=== PATIENT | female | born 1945 | race Caucasian/White ===

== ENCOUNTER 2016-09-30 12:57 | Inpatient (IN) | payer MEDICARE, OTHER ==
[~2016-09-30] VITALS: Ht 157.5 cm; Wt 83.5 kg
--- NOTE | ~2016-09-30 | OR ---
PATIENT'S NAME: TREVON JUSTIN [facility] AGE: 71 Y [address] ROOM: [address] [place], [place] [address] LOCATION: GPCU ADMIT DATE: 10/01/2016 OR/Procedure Report DISCHARGE DATE: 10/09/2016 FAMILY PHYSICIAN: Mary Lu MD ATTENDING PHYSICIAN: Serge Camejo SURGEON: Serge Camejo DO WEB OPERATIONS ADMINISTRATOR: DATE OF PROCEDURE: 10/01/2016 PREOPERATIVE DIAGNOSES: 1. Severe coronary artery disease with left main disease greater than 80%. 2. History of carotid artery disease, status post carotid stenting. 3. Left subclavian stenosis. SECONDARY DIAGNOSIS: Chronic obstructive pulmonary disease. POSTOPERATIVE DIAGNOSES: 1. Severe coronary artery disease with left main disease greater than 80%. 2. History of carotid artery disease, status post carotid stenting. 3. Left subclavian stenosis. PROCEDURES: Coronary artery bypass grafting x3 with reverse saphenous vein graft to the left anterior descending, reverse saphenous vein graft to the obtuse marginal, and reverse saphenous vein graft to the right coronary artery. BRIEF HISTORY: Ms. Justin is a 71-year-old white female with the above-noted diagnosis. She has been brought to the operative suite today after informed consent was obtained for her revascularization. She was sterilely prepped and draped for sternal incision with lower extremity vein harvest. The sternal incision was made and the sternum was divided in the midline. Concurrently to this, saphenous vein was harvested endoscopically from the lower extremities. The vein was then prepared for bypass. Heparin was given. Cannulation sutures were placed in the ascending aorta and right atrium for bypass and cardioplegia cannulas, and the patient was cannulated and connected to the bypass pump without difficulty. Cardiopulmonary bypass was initiated. Crossclamp was applied. Antegrade and retrograde cardioplegia was given along with topical cold saline for cardiac arrest and the heart arrested without difficulty. The right coronary artery was identified and we extended the dissection of the artery on to the posterolateral and posterior descending branch. The posterior descending branch was slightly better target and our end-to-side anastomosis was created just at this bifurcation and the vein was incised appropriately and connected to cardioplegia system. Another 500 mL of retrograde and vein graft cardioplegia was given. This was done after each venous distal anastomosis. Similar venous distal anastomosis was then created PATIENT'S NAME: TREVON JUSTIN [facility] AGE: 71 Y [address] ROOM: [address] [place] [address] LOCATION: GPCU ADMIT DATE: 10/01/2016 OR/Procedure Report DISCHARGE DATE: 10/09/2016 FAMILY PHYSICIAN: Mary Lu MD ATTENDING PHYSICIAN: Serge Camejo to the obtuse marginal and the LAD and a crossclamp was removed. All grafts were then connected to the retrograde system. Retrograde warm blood was initiated as well as down the vein grafts and a partial occlusion clamp was applied. Our 3 proximal anastomosis completed to the ascending aorta under partial occlusion clamping utilizing 4-0 punch and 6-0 Prolene. Sinus rhythm returned during this time. The partial occlusion clamp was removed, vein grafts were de-aired, bulldog was removed, and distal flow was given. Two atrial and one ventricular temporary pacemaking wires were placed and we weaned from cardiopulmonary bypass without difficulty. Venous cannula was removed. Appropriate volume returned from the pump to the patient. The ascending aortic cannula was removed and protamine was given. Two chest tubes were placed, one in the anterior mediastinal and one in the posterior pericardial, and the sternum was copiously irrigated as well as the mediastinum with antibiotic-infused saline and autologous growth factor from platelet sampling. Sternum was then approximated with ZIPFIX system and soft tissues irrigated again and closed in a layered fashion. All sponge, instrument, and needle counts were correct. The patient was transferred to the intensive care unit in stable condition. DO MARGY CÁRDENAS/teofilol /[id number] d: 10/13/162013 t: 10/14/16 0743, OPERATIVE SUMMARY
--- NOTE | ~2016-09-30 | PUL ---
PATIENT'S NAME: TREVON WORTHY [facility] AGE: 71 Y [address] ROOM: [facility] [place] [place] [place], [place] [address] LOCATION: [facility] ADMIT DATE: 10/01/2016 Pulmonary DISCHARGE DATE: FAMILY PHYSICIAN: PANKAJ PARADA MD ATTENDING PHYSICIAN: Serge Camejo NAME OF PROCEDURE: Bedside Spirometry DATE OF PROCEDURE: September 30, 2016 TECH: ATripe, APPLICATIONS MANAGER REASON FOR EXAM: Pre-surgical evaluation RESULTS: FVC was 2 liters which is 76% of predicted and normal, FEV1 was 1.37 liters which is 69% of predicted and low, and FEV1/FVC was 68.3%. The flow volume curve reveals some airflow limitation. After bronchodilator administration FVC increased to 2.56 liters which is a 28% increase and FEV1 increased to 1.63 liters which is a 19% increase. FEV1/FVC was 63.8%. PHYSICIAN INTERPRETATION: The patient has moderate airflow limitation with a significant bronchodilator response. DIANE GARCIA MD RFMarilou/ks /[id number] dtt: 10/02/16 1337 , DIANE GARCIA dtd: 10/01/16 1520
--- NOTE | ~2016-09-30 | ENPV ---
Vascular Lower Extremity Vein Mapping Procedure Demographics Patient Name TREVON WORTHY Date of Study 09/30/2016 Patient Number [id number] Gender Female Date of 1945 Age 71 Visit Number [id number] Height Accession Number [id number] Weight Room Number BSA BMI Referring Nell Nava MD Physician DO Physician Physician Ordering Physician Nell Matias DO Power Wood Sawyer Rubber Gasket Inspector Trimmer Joleen Smith [facility] Niranjan Temple Conclusions Summary Adequate veins bilaterally. Procedure Type of Study: Veins:Lower Extremity Vein Mapping, Vein Mapping. Indications for Study:Pre-op CABG. Patient Status:Routine. Study Location:Vascular Lab. Technical Quality:Adequate visualization. Velocities are measured in cm/s ; Diameters are measured in cm + ++--------++--------+ !Superficial - Great Saphenous Vein !!Right !!Left ! + ++--------++--------+ !Location !!Diameter!!Diameter! + ++--------++--------+ !Sapheno Femoral Junction !!0.51 !!0.45 ! + ++--------++--------+ !GSV High Thigh !!0.31 !!0.25 ! + ++--------++--------+ !GSV Mid Thigh !!0.2 !!0.19 ! + ++--------++--------+ !GSV Low Thigh !!0.26 !!0.21 ! + ++--------++--------+ !GSV Knee !!0.21 !!0.24 ! + ++--------++--------+ !GSV High Calf !!0.15 !!0.18 ! + ++--------++--------+ !GSV Mid Calf !!0.15 !!0.17 ! + ++--------++--------+ !GSV Low Calf !!0.26 !!0.23 ! + ++--------++--------+ !GSV Ankle !!0.26 !!0.15 ! + ++--------++--------+ Signature dtt: ALE PORTER dtjose: 09/30/16 1458 Physician Self Edit
--- NOTE | ~2016-09-30 | DS ---
PATIENT'S NAME: TREVON WORTHY [facility] AGE: 71 Y [address] ROOM: [id number] [place], [place] [address] LOCATION: GPCU ADMIT DATE: 10/01/2016 Discharge Summary DISCHARGE DATE: 10/09/2016 FAMILY PHYSICIAN: Mary Lu MD ATTENDING PHYSICIAN: Serge Camejo HOSPITAL COURSE: The patient is a 71-year-old, white female, with known severe coronary artery disease, including left main disease of greater than 80% as well as history of severe carotid artery disease with recent status post carotid stenting and left subclavian stenosis. She was referred to Dr. Camejo by Dr. Acosta for coronary artery bypass surgery. She presented to the operative suite on October 01, 2016 for coronary artery bypass grafting x3 with a reverse saphenous vein graft bypass to the left anterior descending, reverse saphenous vein graft to the obtuse marginal, reverse saphenous vein graft to the right coronary artery. The mammary artery could not be utilized secondary to subclavian stenosis. Following the surgery, the patient was transferred to the ICU. She remained intubated on arrival. She did fail extubation attempts as well as a CPAP trial and did not extubate until postoperative day 2. The patient did remain paced until postoperative day 2 as well. She extubated without complication on postoperative day two, but did have p.r.n. BiPAP. The patient did have moderate air flow limitations that were noted on her preop pulmonary function studies. We did set the patient up for PT, OT, and speech therapy. She was placed on PCU status on postop day 2. She did go into postoperative atrial fibrillation and was started on an amiodarone bolus and drip. We then ended up adding digoxin. She eventually converted. 48 hours later she did go back into atrial fibrillation again, was started on amiodarone bolus and drip. We did add p.o. digoxin as well as starting Xarelto. The patient's Johnston catheter, chest tubes, and pacemaking wires were discontinued in the routine postoperative timeframe. The patient was transferred to the [facility] when there was bed availability. The patient's home dose of Glucophage was changed to 850 mg b.i.d. from 500 mg b.i.d. given her elevated hemoglobin A1c at the time of her preoperative evaluation. She also had a preoperative urinary tract infection with E. coli that was treated. She did have a followup UA after treatment, given that she did have some mild delirium in the postoperative phase. The 2nd UA was negative for infection. The patient did require oxygen throughout the hospital stay. Therefore we did make arrangements for home O2 upon discharge. In talking with the family with regard to discharge, they did request that the patient be placed in a prison facility in [place]. Care Management worked with the family regarding this. The patient resides in [place], [place], the family resides in [place], [place]. [facility] in [place] did accept the patient upon discharge. On 10/09/2016, the patient was found stable for transfer to their facility. PATIENT'S NAME: TREVON WORTHY [facility] AGE: 71 Y [address] ROOM: [place] [address] LOCATION: GPCU ADMIT DATE: 10/01/2016 Discharge Summary DISCHARGE DATE: 10/09/2016 FAMILY PHYSICIAN: Mary Lu MD ATTENDING PHYSICIAN: Serge Camejo Admission diagnosis to [facility] was for deconditioning secondary to coronary artery bypass grafting x3 vessels performed on October 01, 2016 which included left main disease. Secondary diagnoses include peripheral vascular disease with recent right stent to the carotid artery, left subclavian stenosis, COPD, now requiring oxygen therapy, atrial fibrillation, diabetes mellitus type 2, hypertension, and postoperative delirium. Dr. Coughlin in [place] was the accepting physician. The patient is to follow up with Dr. Acosta in 1-2 weeks as well as Dr. Camejo in 2-3 weeks. The patient is to have an ADA regular texture diet. She is to be full weightbearing status with strict sternal precautions until November 12, 2016. She is to work with PT/OT for conditioning purposes. She is requiring 3 L of oxygen that may be titrated to keep oxygen saturations at 90%. We will also order nebulizer and metered dose inhaler. The patient has no dressings to her incisions sites. Her graft leg sutures on the left may be removed in the knee and groin area on October 15, 2016. The patient may shower. She is to wear ABISAI on in the a.m. and off in the p.m. TRANSFER MEDICATIONS: Include: 1. Amiodarone 200 mg twice a day. 2. Norvasc 5 mg twice a day. 3. Aspirin 81 mg daily. 4. Lipitor 40 mg daily. 5. Coreg 3.125 mg twice a day. 6. Colace 100 mg twice a day. 7. Enalapril 5 mg b.i.d. 8. Pepcid 20 mg twice a day. 9. Lasix 40 mg daily. 10. NovoLog insulin per moderate sliding scale subcutaneously. 11. Magnesium oxide 400 mg twice a day. 12. Glucophage 850 mg b.i.d. 13. Potassium chloride 20 mEq twice a day. 14. Xarelto 20 mg daily. 15. Albuterol per nebulizer q.6 hours. 16. Spiriva 2 puffs per inhalation daily. 17. Tylenol 650 mg q.4 hours p.r.n. mild pain. 18. Crawford 5/325 1-2 every 4-6 hours as needed. 19. Dulcolax suppository 10 mg p.r.n. constipation. 20. Milk of magnesia 30 mL p.r.n. constipation. 21. Zofran 4 mg p.o. q.6 hours p.r.n. nausea and vomiting. 22. Albuterol per nebulization q.4 hours p.r.n. shortness of breath. 23. Multivitamin daily. 24. Fish oil 1200 mg daily. The patient and family verbalized understanding of the transfer orders. The patient was transferred with portable oxygen to [facility] in stable PATIENT'S NAME: TREVON WORTHY [facility] AGE: 71 Y [address] ROOM: [place] [address] [facility] ADMIT DATE: 10/01/2016 Discharge Summary DISCHARGE DATE: 10/09/2016 FAMILY PHYSICIAN: Mary Lu MD ATTENDING PHYSICIAN: Serge Camejo condition. KUSHAL CARIAS APRN FOR DO REBECCA CÁRDENAS/teofilol /[id number] d: 10/24/16923 t: 10/26/16930, DISCHARGE SUMMARY
--- NOTE | ~2016-09-30 | OR ---
PATIENT'S NAME: TREVON WORTHY [facility] AGE: 71 Y [address] ROOM: [address] [place] [address] LOCATION: GICU ADMIT DATE: 10/01/2016 OR/Procedure Report DISCHARGE DATE: FAMILY PHYSICIAN: PANKAJ PARADA MD ATTENDING PHYSICIAN: Serge Camejo SURGEON: Addison Stanford MD LEAD NUCLEAR MEDICINE TECHNOLOGIST: DATE OF PROCEDURE: 10/01/2016 PROCEDURE: 1. Right radial arterial line. 2. Right central venous catheter with Dalzell placement. 3. Transesophageal echocardiography. INDICATION: The patient is undergoing coronary artery bypass grafting for 3- vessel coronary artery disease. She has left carotid stenosis with 80% to 99% occlusion and a right internal carotid stent placed 2 weeks ago. Need for uvbq-ku-unbe pressure monitoring, vasoactive medications, volume assessment. Additionally, due to her significant atherosclerosis, this may be done off pump. PROCEDURE #1: The patient was identified. Risks, benefits, and alternatives were explained to the patient who wished to proceed. The right arm was extended out about 90 degrees and cleaned with 2% chlorhexidine. The radial artery was easily palpated. A 1 mL of lidocaine was injected. Next, a 20- gauge Arrow catheter was introduced using the Seldinger technique. Bright red pulsatile blood was found on a single stick. Catheter was placed easily and secured into place. Blood loss none. Complications none. PROCEDURE #2: After induction of general anesthesia, the patient was lying supine in operating table in slight Trendelenburg position. The right neck and chest were prepped with 2% chlorhexidine. Maximal sterile barriers were worn all times. The ultrasound was used for real-time guidance of the introducer needle. With a single stick, dark nonpulsatile blood was found on return and a wire was threaded without difficulty. The ultrasound was then used to visualize the wire in the internal jugular vein. Skin nicked, dilated, and a 9-Mongolian 10 cm catheter was placed over the wire without complication and the wire removed. All ports withdrew, blood flushed easily; it was secured into place. Next, a Dalzell-Pauline catheter was floated without complication and secured into place at about 45 cm. Complications none. Blood loss none. Chest x-ray was ordered in the ICU. PROCEDURE #3: After induction of general anesthesia and placement of lines, a transesophageal echo cardiac probe was placed atraumatically. Please see saved images for further detail. Briefly, there was relatively preserved PATIENT'S NAME: TREVON WORTHY [facility] AGE: 71 Y [address] ROOM: [id number] [place] [id number] LOCATION: [facility] ADMIT DATE: 10/01/2016 OR/Procedure Report DISCHARGE DATE: FAMILY PHYSICIAN: PANKAJ PARADA MD ATTENDING PHYSICIAN: Serge Camejo ejection fraction of about 55%. There was no aortic stenosis or aortic regurgitation noted. Valve area was assessed about 2.8 cm with a mean gradient of approximately 10. There was some trivial mitral regurgitation. There was no pericardial effusion. No atrial septal defect or ASD. There was some atherosclerosis in the aorta about the arch and a nonmobile plaque of about 0.4 cm. At the conclusion of the case, there was again preserved ejection fraction, and no clots noted. ADDISON STANFORD MD JJP/modl /[id number] d: 10/02/16 0121 t: 10/07/16 1717, OPERATIVE SUMMARY
[2016-09-30 14:25] LABS: HEMATOCRIT 41.3 % (33.0-46.0); HEMOGLOBIN 13.1 g/dL (10.0-15.0); MCH 29.4 pg (27.0-34.0); MCHC 31.7 gm/dL (32.0-36.5); MCV 92.6 fl (83.0-98.0); MPV 9.6 fl (9.4-12.4); RBC 4.46 M/uL (3.50-5.50)
[2016-09-30 14:36] LABS: PCO2 38 mmHg (35-45); PO2 57 mmHg (80-90)
[2016-09-30 14:36] LABS: INR - (THERAPEUTIC) 0.95 (0.92-1.07)
[2016-09-30 14:52] LABS: ALBUMIN 3.4 gm/dL (3.5-5.0); ANION GAP 10.3 (10.0-19.0); CALCIUM 10.1 mg/dL (8.5-10.5); CREATININE 1.4 mg/dL (0.5-1.1); POTASSIUM 4.3 mMol/L (3.7-5.1); TOTAL BILIRUBIN 0.3 mg/dL (0.0-1.5)
[2016-09-30] MEDS ORDERED: AMIODARONE HCL200 MG PO (16:11)
[2016-09-30] MEDS ORDERED: ASPIR 8181 MG PO (16:12)
[2016-09-30] MEDS ORDERED: PLAVIX75 MG PO (16:13)
[2016-09-30] MEDS ORDERED: CALCIUM-MAGNES1 EAC4 PO (16:13)
[2016-09-30] MEDS ORDERED: CALCIUM 500 +1 EACH PO (16:13)
[2016-09-30] MEDS ORDERED: PRINIVIL (ZESTR20 MG PO (16:14)
[2016-09-30] MEDS ORDERED: FISH OIL 1,2001 EAC1 PO (16:14)
[2016-09-30] MEDS ORDERED: GLUCOPHAGE500 MG PO (16:15)
[2016-09-30] MEDS ORDERED: RANEXA ER500 MG PO (16:17)
[2016-09-30] MEDS ORDERED: LOPRESSOR50 MG PO (16:18)
[2016-09-30] MEDS ORDERED: WOMEN'S DAILY1 EAC1 PO (16:18)
[2016-09-30] MEDS ORDERED: NORVASC10 MG PO (16:19)
[2016-09-30 16:33] LABS: BILIRUBIN URINE NEGATIVE (NEGATIVE); BLOOD URINE 10 /UL (NEGATIVE); COLOR URINE YELLOW (YELLOW); GLUCOSE URINE NEGATIVE (NEGATIVE); KETONE URINE NEGATIVE (NEGATIVE); LEUKOCYTES URINE 100 /UL (NEGATIVE); NITRITE URINE POSITIVE (NEGATIVE); PROTEIN URINE 15 mg/dL (NEGATIVE); SPEC GRAVITY URINE 1.025 (1.003-1.035); TURBIDITY URINE 2+ (CLEAR); UROBILINOGEN URINE NORMAL (NORMAL)
[2016-09-30 16:35] LABS: AMORPHOUS URINE 1+ (NEGATIVE); BACTERIA URINE MODERATE (NEGATIVE); RBC URINE 0-2 #/HPF (NEGATIVE)
[2016-09-30] MEDS ORDERED: LIPITOR80 MG PO (17:03)
[2016-10-01] MEDS ORDERED: CIPRO500 MG PO (10:26)
[2016-10-01 18:13] LABS: BASOPHIL % 0.1 %; EOSINOPHIL # 0.4 K/uL (0.0-0.5); IMMATURE GRANULOCYTE # 0.1 K/uL (0.0-0.3); IMMATURE GRANULOCYTE % 0.9 %; LYMPHOCYTE # 1.4 K/uL (0.8-4.0); LYMPHOCYTE % 9.9 %; MCV 95.1 fl (83.0-98.0); MONOCYTE # 0.3 K/uL (0.0-1.0); MONOCYTE % 1.7 %; MPV 9.6 fl (9.4-12.4); NEUTROPHIL # (ANC) 12.2 K/uL (1.8-7.8); NEUTROPHIL % 84.4 %; NRBC % 0 /100WBC (0-0.00); RDW-CV 17.7 % (11.9-14.6); WBC 14.5 K/uL (4.0-11.0)
[2016-10-01 18:15] LABS: HEMATOCRIT 29.3 % (33.0-46.0); MCH 29.9 pg (27.0-34.0); MCHC 31.4 gm/dL (32.0-36.5); PLATELET COUNT 147 K/uL (150-450); RBC 3.08 M/uL (3.50-5.50)
[2016-10-01 18:16] LABS: HEMOGLOBIN 9.2 g/dL (10.0-15.0)
[2016-10-01 18:25] LABS: INR - (THERAPEUTIC) 1.26 (0.92-1.07); PROTIME 13.3 SECONDS (9.8-11.4)
[2016-10-01 18:26] LABS: PTT 29 SECONDS (25-32)
[2016-10-01 18:37] LABS: BICARBONATE 26.9 mmol/L (18.0-23.0); PCO2 54 mmHg (35-45); PO2 178 mmHg (80-90); POTASSIUM 3.8 mEq/L (3.7-5.1); SODIUM 143 mEq/L (135-145)
[2016-10-01 18:38] LABS: BICARBONATE 28.6 mmol/L (18.0-23.0); PCO2 49 mmHg (35-45); PO2 329 mmHg (80-90); POTASSIUM 5.4 mEq/L (3.7-5.1); SODIUM 138 mEq/L (135-145)
[2016-10-01 18:39] LABS: BICARBONATE 26.3 mmol/L (18.0-23.0); PCO2 43 mmHg (35-45); PO2 200 mmHg (80-90); POTASSIUM 5.2 mEq/L (3.7-5.1); SODIUM 140 mEq/L (135-145)
[2016-10-01 18:40] LABS: BICARBONATE 25.6 mmol/L (18.0-23.0); PCO2 55 mmHg (35-45); PO2 194 mmHg (80-90); POTASSIUM 4.3 mEq/L (3.7-5.1); SODIUM 139 mEq/L (135-145)
[2016-10-01 18:56] LABS: ALPHA ANGLE 74 degrees; CLOT FORMATION TIME 82 seconds; CLOTTING TIME 149 seconds; MAXIMUM CLOT FIRMNESS 59 mm; MAXIMUM LYSIS 1 %
[2016-10-01 18:57] LABS: ALPHA ANGLE 74 degrees (70-81); CLOTTING TIME 108 seconds (43-82); MAXIMUM CLOT FIRMNESS 58 mm (51-72)
[2016-10-01 19:17] LABS: BICARBONATE 26.3 mmol/L (18.0-23.0); PCO2 56 mmHg (35-45); PO2 57 mmHg (80-90)
[2016-10-01 19:28] LABS: ANION GAP 12.3 (10.0-19.0); CALCIUM 8.3 mg/dL (8.5-10.5); CREATININE 1.1 mg/dL (0.5-1.1); MAGNESIUM 2.3 mg/dL (1.8-2.6); POTASSIUM 4.3 mMol/L (3.7-5.1)
[2016-10-01 20:13] LABS: BICARBONATE 24.8 mmol/L (18.0-23.0); PCO2 45 mmHg (35-45); PO2 58 mmHg (80-90)
[2016-10-01 21:42] LABS: PCO2 42 mmHg (35-45)
[2016-10-01 21:43] LABS: PO2 107 mmHg (80-90)
[2016-10-02 03:15] LABS: BICARBONATE 26.5 mmol/L (18.0-23.0); PCO2 39 mmHg (35-45)
[2016-10-02 03:16] LABS: PO2 85 mmHg (80-90)
[2016-10-02 03:29] LABS: ANION GAP 10.9 (10.0-19.0); CALCIUM 8.5 mg/dL (8.5-10.5); POTASSIUM 3.9 mMol/L (3.7-5.1)
[2016-10-02 03:31] LABS: BASOPHIL % 0.3 %; EOSINOPHIL # 0.2 K/uL (0.0-0.5); HEMATOCRIT 30.5 % (33.0-46.0); HEMOGLOBIN 9.5 g/dL (10.0-15.0); IMMATURE GRANULOCYTE % 0.4 %; LYMPHOCYTE # 1.2 K/uL (0.8-4.0); LYMPHOCYTE % 12.9 %; MCH 29.1 pg (27.0-34.0); MCHC 31.1 gm/dL (32.0-36.5); MCV 93.3 fl (83.0-98.0); MONOCYTE # 0.7 K/uL (0.0-1.0); NEUTROPHIL # (ANC) 7.1 K/uL (1.8-7.8); NEUTROPHIL % 77.4 %; NRBC % 0 /100WBC (0-0.00); RBC 3.27 M/uL (3.50-5.50); RDW-CV 17.9 % (11.9-14.6); WBC 9.2 K/uL (4.0-11.0)
[2016-10-02 03:32] LABS: PLATELET COUNT 177 K/uL (150-450)
--- NOTE | 2016-10-02 03:52 | NUR ---
pt out of OR post CABG x 3 at 1842. mahmood to lad, sv to rca and om. Pt PCO2 and PO2 were in the 50's at 60%, peep was increased to 8, tidal volume increased to 600 and rate increased to 14. Currently weaning O2 down from 100%. NTG currently off. Accuchecks q 2hours with insulin at 4 units/h. Amiodarone and bicarb gtt continues. Diprivan currently at 5 mcg/kg/hour. 2 mg morphine given x2 for pain. treated 3.9 potassium with 40 meq of potassium chloride.
--- NOTE | 2016-10-02 04:56 | NUR ---
Post op CABG arrived to ICU floor at 1843 last night. RR increased to 14, Vt to 600ml, PEEP to 8 due to initial ABG results. FiO2 increased to 100% per Dr. Camejo and ABGs redrawn showed improved PaO2 so gradual weaning of FiO2 was done. This AM FiO2 is down to 40%. EtCO2 upper 20s. BrSs more clear after suctioning moderate amounts of thick, cream colored secretions from ETT. Plan to place in CPAP this AM and wean from ventilator.
--- NOTE | 2016-10-02 14:11 | NUR ---
Introduced self and role of care management to pt's son. Pt lives alone [place] on [address] and he and his live in [place]. I explained I will follow and assist with dc plans when closer. Her son states the plan is hopefully to take her home with them. WIll continue to follow.
[2016-10-02 15:39] LABS: BICARBONATE 28.4 mmol/L (18.0-23.0); PCO2 39 mmHg (35-45); PO2 78 mmHg (80-90)
--- NOTE | 2016-10-02 17:15 | NUR ---
D: CABG I: VENT, MDI R: PT WAS ON 40% FIO2 T/O DAY UNTIL AROUND 17:00 WHEN I HAD TO INCREASE HER FIO2 TO 60%, BS CLEAR IN UPPER LOBES & C&D IN BASES, SXNED OUT MOD THICK CREAMY CREAMY SECRETIONS, ATTEMPTED CPAP THIS MORING & PT HAD BACK TO BACK EPISODES OF APNEA, PT HAS NOT OVERBREATHED THE VENT T/O THE DAY, NO OTHER SIGNIFICANT CHANGES T/O DAY P: CONT.8
--- NOTE | 2016-10-02 17:43 | NUR ---
Significant Events: Patient nods head appropriately, follows commands. A paced most of the shift, is SR at times with HR up to 88. SBP 120-130s. Remains in SIMV, did titrate FiO2 up to 60% this afternoon. Lungs clear to slightly coarse. Chest tubes 130 ml serosang drainage. Drainage noted on gauze to chest tube site. OG LIS 100 ml bile. Johnston has adequate UOP all shift. Follow up: Wean vent as able
--- NOTE | 2016-10-03 01:04 | NUR ---
Patient self extubated herself around 0100. Patient placed on Bipap 12/7 and 50% FiO2.
--- NOTE | 2016-10-03 04:35 | NUR ---
PT SELF-EXTUBATED AT 0045 THIS SHIFT. REMAINS ON BIPAP AT THIS TIME WITH SHORT BREAKS (15 MIN AND LESS) TO 6L NC. BIPAP 50%, 05/25. NITRO RESTARTED; CURRENTLY RUNNING 75 MCG/MIN. SBP 110S-130S VIA ART LINE AT THIS TIME. TOTAL OF 60 MEQ KCL REPLACED THIS SHIFT. WILL RECHECK K+ LEVEL WITH AM LABS AND REPLACE IF INDICATED. CHEST TUBE OUTPUT 90 ML S/S DRAINAGE. UOP 1550 ML THIS SHIFT WITH FLUID BALANCE OF -548 FOR PAST 24 HOURS. UP TO CHAIR THIS AM. BEDSIDE SWALLOW STUDY PERFORMED BUT PATIENT UNABLE TO PASS AT THIS TIME. YOLETTE LANGLEY RN
[2016-10-03 05:34] LABS: ANION GAP 11.5 (10.0-19.0); BLOOD UREA NITROGEN 14 mg/dL (6-24); CALCIUM 8.2 mg/dL (8.5-10.5); CHLORIDE 112 mMol/L (96-110); CO2 25 mMol/L (22-32); CREATININE 0.9 mg/dL (0.5-1.1); ESTIMATED GFR (MDRD EQUATION) > 60
[2016-10-03 05:37] LABS: POTASSIUM 4.5 mMol/L (3.7-5.1); SODIUM 144 mMol/L (135-145)
[2016-10-03 05:43] LABS: BASOPHIL # 0.1 K/uL (0.0-0.2); BASOPHIL % 0.4 %; EOSINOPHIL # 0.4 K/uL (0.0-0.5); EOSINOPHIL % 3.9 %; HEMATOCRIT 28.9 % (33.0-46.0); IMMATURE GRANULOCYTE # 0.1 K/uL (0.0-0.3); IMMATURE GRANULOCYTE % 0.4 %; LYMPHOCYTE # 1.4 K/uL (0.8-4.0); LYMPHOCYTE % 12.8 %; MCH 29.2 pg (27.0-34.0); MCHC 31.1 gm/dL (32.0-36.5); MCV 93.8 fl (83.0-98.0); MONOCYTE % 8.5 %; MPV 10.6 fl (9.4-12.4); NEUTROPHIL # (ANC) 8.2 K/uL (1.8-7.8); NRBC % 0 /100WBC (0-0.00); PLATELET COUNT 172 K/uL (150-450); RBC 3.08 M/uL (3.50-5.50); RDW-CV 18.2 % (11.9-14.6); WBC 11.1 K/uL (4.0-11.0)
--- NOTE | 2016-10-03 08:08 | NUR ---
CONSULT FOR DIET ED S/P CABG NOTED. WILL COMPLETE APPROPRIATE PRIOR TO DISMISSAL.
--- NOTE | 2016-10-03 17:15 | NUR ---
Significant Event:patient post-op CABG from . Mostly on BiPap today but did tolerate NC at 6L for about 4hrs this morning. Breathing shallow. Increased confusion noted today. Restless at times and pulls BiPap mask off often. Increased observation and HiLo bed initated. Mediastinal CT discontinued and pleural CT now to BRITTANY bulb. Pacer and pacer wires discontinued. At 1205 patient converted to A fib with RVR, HR 150-160s. Amiodarone bolus and gtt started. Continued to have increased HR so lopressor and digoxin IVP given. HR remains high. Weaned off nitro drip this morning. BP tolerating a fib. Sternal precautions encouraged but due to confusion patient is noncompliant. Insulin drip discontinued, accu checks AC/HS. Up to chair twice today. 2 assist with gait belt. PT/OT/ST all ordered. Failed swallow eval this morning. Johnston and central line removed as ordered. Follow up:continue to wean oxygen, monitor A fib and vitals. Consider 1:1 sitter.
--- NOTE | 2016-10-04 03:02 | NUR ---
SIGNIFICANT EVENT: PT VERY RESTLESS/CONFUSED THROUGHOUT SHIFT PULLING AT BIPAP AND CHORDS/IVS. PT REMAINED ON BIPAP UNTIL 299 THEN TO NC. SBP 150S THROUGHOUT SHIFT. PT CONVERTED TO SR AFTER LOPRESSOR 2.5MG GIVEN AT 2029, REMAINED IN SR THROUGHOUT SHIFT. FOLLOW UP:
--- NOTE | 2016-10-04 16:58 | NUR ---
VSS, AFEBRILE, PULSES 1+ DISTALLY, 1-2+ GEN EDEMA TO BLE. BIPAP 50% 05/27 ALTERNATING BTWN NC 6LNC WITH LS SLC AT TIMES, SATS MID 90'S. SR HR 80-90'S, SBP 130'S. MS 2MG GIVEN THIS EVENING FOR GEN CHEST DISCOMFORT. STERNOTOMY SITE WITH DRSG REMOVED AND EDGES APPROX. ACHS ACCUCHECKS TRX, ADEQ ORAL INTAKE WITH SWALLOW EVAL PASSED EASILY. BM X1, UP TO COMMODE AND BR WITH 500 UOP. L) UPPER MIDLINE S.L.
--- NOTE | 2016-10-05 02:55 | NUR ---
SIGNIFICANT EVENT: PT WAS MUCH MORE ORIENTED AND CONVERSATIONAL THIS SHIFT. REMAINED ORIENTED THROUGHOUT SHIFT BUT DID ATTEMPT TO PULL OFF BIPAP MASK MULTIPLE TIMES IN THE NIGHT. PT CONVERTED TO AFIB AT 0208 RATES 120-140S, AMIODARONE BOLUS 150MG AND GTT PER PROTOCOL STARTED. NO CHANGES IN BP WITH THIS, REMAINED IN 140S. FOLLOW UP:
--- NOTE | 2016-10-05 13:52 | NUR ---
SIGNIFICANT EVENT: PATIENT ALERT, ORIENTED X3. OPENS EYES SPONTANEOUSLY AND TO VOICE. PUPILS EQUAL AND REACTIVE. PATIENT COMPLAINS OF CHEST SORENESS AT TIMES, MD AWARE, 1 TAB OF NORCO GIVEN, RELIEF NOTED. PATIENT MOVES ALL 4 EXTREMITIES SPONTANEOUSLY AND TO COMMANDS. SIGNIFICANT WEAKNESS THROUGHOUT, EQUAL STRENGTH. PATIENT AMBULATES USING A GAITBELT AND WALKER, 2 PERSON ASSIST. PATIENT CONVERTED TO SINUS RHYTHM, HR 60-80S. BP STABLE, SBP 90-140S MAP>65. EDEMA PRESENT. DENIES ANY CHEST PRESSURE, NO RADIATION FROM CHEST SORENESS, FOLLOWS HEART HUGGER PRECAUTIONS. PULSES PALPABLE THROUGHOUT. MAX TEMP OF 99.5. PATIENT IS ON 5L NASAL CANNULA, SATS MID TO LOWER 90S. WAS ON BIPAP AT NIGHT. BOWEL SOUNDS ACTIVE, NO BM. ACCU CHECKS AC AND HS, TREATED PER MD ORDERS. ADEQUATE URINE OUTPUT. NO NEW SKIN ISSUES NOTED. CHEST TUBE REMOVED AT BEDSIDE BY DR PATEL, NO COMPLICATIONS. AMIODARONE DRIP INFUSING AT 0.5MG/HR PER PROTOCOL. NO COMPLICATIONS WITH IV. BATH COMPLETED. PATIENTED REPOSTIONED EVERY 2 HOURS. FOLLOW UP: CONTINUE TO MONITOR, WEAN O2
--- NOTE | 2016-10-05 16:32 | NUR ---
PATIENT TRANSFERED TO PCU AT 1555, NO CHANGES SINCE SHIFT SUMMARY NOTE WAS PLACED. PATIENT COMPLAINED OF GENERALIZED PAIN DURING BEDSIDE REPORT, 1 NORCO ADMINESTERED BY [employer] EDUCATION COORDINATOR. PATIENT CONTINUES TO BE ALERT AND ORIENTED X3. FOLLOWS ALL COMMANDS. VITALS STABLE. CHART CHECKED AT BEDSIDE, ALL BELONGINGS SENT WITH PATIENT IN CLUDING CELLPHONE. FAMILY NOTIFIED AND AWARE OF TRANSFER.
--- NOTE | 2016-10-06 04:48 | NUR ---
Significant Event: A&Ox3 forgetful/ disoriented upon waking at times. Drowsy at beginning of shift. More alert now. Amiodarone gtt shut off at 0300 per protocol. Incisions to left leg and chest open to air with no drainage. Left midline SL with no blood return but flushes well. Up to BSC X3, 1PA with gaitbelt. On BiPAP at HS, decreased FiO2 to 30%. VSS on 5L O2 during day. Patient stated she "feels better than she ever has" Follow up: Continue with plan of care.
--- NOTE | 2016-10-06 11:03 | NUR ---
A-SCREENED D/T LOS S/P CABG ON 10/02. CHEST TUBE REMOVED 10/05. (+)BM FORGETFUL AND DISORIENTED AT TIMES HT: 62 IN. WT: 81.2 KG. BMI: 34.1 LABS: NA 144, K+ 4.1, GLU 147, BUN 14, MEDIA LIAISON OFFICER 0.9. 09/30-PREALB 32.0 MEDS: GLUCOPHAGE, XARELTO, NOVOLOG (MOD SS), LIPITOR, COLACE, LASIX, NORCO, PRN BOWEL MEDS DIET RX: CONSISITENT CARB; PO INTAKE HAS BEEN 75-100%. FOOD SELECTIONS AT MEALTIMES ARE SMALL. EST NUTR NEEDS: [id number] KCALS (20-25 KCALS/KG) 75-100 GM PROTEIN (1.5-2.0 GM/KG IBW) 1 ML FLUID/KCAL D-AT NUTRITION RISK W/INCREASED NUTRIENT NEEDS R/T HEALING AEB RECENT CABG I-START GLUCERNA BID AT B/D TO PROVIDE ADDITIONAL NUTRIENTS WILL COMPLETE HEART HEALTHY DIET ED, IF APPROPRIATE, PRIOR TO D/C M/E-GOAL: PO INTAKE >/=75% W/INCREASED FOOD SELECTIONS PRIOR TO DISCHARGE 1)F/U PO INTAKE, SUPPLEMENT, AND POC IN 3-5 DAYS 2)ASSIST NEEDED
--- NOTE | 2016-10-06 13:46 | NUR ---
Introduced myself and role of care management to pt and her daughter in law Jaqui. Jaqui states she is doing better than yesterday but still on quite qa bit of oxygen and does get confused at times. I did discuss dc plans and they plan still is home with them but we did discuss skilled care and options. The would want her in [place] and I did mention the need for a PCP to follow. She stated there family goes to Dr Coughlin and could see about him or I also menitoned there medical billing representative as well. I did give her the 3 options and she really does not care but did mention [facility]. I explained I will call and just inquire about beds and go from there if needed. I did call Reyna at [facility] and they do have skilled beds and I placed on the list. She stated DR Spangler is the medical billing representative and is in with Dr Coughlin. WIll continue to follow and see how pt does.
--- NOTE | 2016-10-06 17:20 | NUR ---
Significant Event: Patient alert and oriented x3. Vital signs stable on 5L via nasal cannula. Up with 1 assist with walker and gaitbelt, heart precautions. Appetite increasing. Walked to hallway x1 time. Up to bathroom multiple times during shift. Left leg ecchymotic, harvest sites sutured with no complications. Has rested well during shift. Given pain medication one time during shift, pain well controlled. Pleasant and cooperative with cares. Follow up:
--- NOTE | 2016-10-07 03:47 | NUR ---
Significant Event: A&Ox3, VSS on 4L O2 via NC. Coarse lung sounds and moist cough noted, IS, coughing, and deep breathing encouraged. Transfers with 1PA to bathroom, walker/GB. Patient fatigued and transfered to BSC with 1PA during night. ACHS with 2units SSI needed. Denies pain. Pleasant and cooperative with cares. Follow up: continue with plan of care.
[2016-10-07 05:27] LABS: BASOPHIL % 0.3 %; EOSINOPHIL # 0.5 K/uL (0.0-0.5); EOSINOPHIL % 4.2 %; HEMATOCRIT 30.3 % (33.0-46.0); HEMOGLOBIN 9.3 g/dL (10.0-15.0); IMMATURE GRANULOCYTE # 0.1 K/uL (0.0-0.3); IMMATURE GRANULOCYTE % 1.1 %; LYMPHOCYTE # 2.7 K/uL (0.8-4.0); MCH 29.2 pg (27.0-34.0); MCHC 30.7 gm/dL (32.0-36.5); MONOCYTE # 1.3 K/uL (0.0-1.0); MONOCYTE % 11.1 %; MPV 10.9 fl (9.4-12.4); NEUTROPHIL % 60.3 %; NRBC % 0.2 /100WBC (0-0.00); RBC 3.19 M/uL (3.50-5.50); RDW-CV 17.4 % (11.9-14.6); WBC 11.6 K/uL (4.0-11.0)
[2016-10-07 05:29] LABS: PLATELET COUNT 266 K/uL (150-450)
[2016-10-07 05:48] LABS: ALBUMIN 2.3 gm/dL (3.5-5.0); ALK PHOS 64 IU/L (33-138); ALT 37 IU/L (12-78); ANION GAP 11.7 (10.0-19.0); AST 20 IU/L (10-40); BLOOD UREA NITROGEN 21 mg/dL (6-24); CALCIUM 9.2 mg/dL (8.5-10.5); CHLORIDE 111 mMol/L (96-110); CO2 25 mMol/L (22-32); CREATININE 0.7 mg/dL (0.5-1.1); ESTIMATED GFR (MDRD EQUATION) > 60; MAGNESIUM 1.9 mg/dL (1.8-2.6); POTASSIUM 4.7 mMol/L (3.7-5.1); SODIUM 143 mMol/L (135-145)
[2016-10-07 05:51] LABS: TOTAL BILIRUBIN 0.5 mg/dL (0.0-1.5)
[2016-10-07 12:46] LABS: BILIRUBIN URINE NEGATIVE (NEGATIVE); BLOOD URINE NEGATIVE /UL (NEGATIVE); COLOR URINE YELLOW (YELLOW); GLUCOSE URINE NEGATIVE (NEGATIVE); KETONE URINE NEGATIVE (NEGATIVE); LEUKOCYTES URINE NEGATIVE /UL (NEGATIVE); NITRITE URINE NEGATIVE (NEGATIVE); PROTEIN URINE NEGATIVE (NEGATIVE); SPEC GRAVITY URINE 1.015 (1.003-1.035); TURBIDITY URINE CLEAR (CLEAR); UROBILINOGEN URINE NORMAL (NORMAL)
--- NOTE | 2016-10-07 14:31 | NUR ---
I did talk with daughter in law and she states that would be fine to go ahead and fax to [facility]. She still is unsure if pt will go home or need skilled. I explained at this point she would benefit from skilled but that could change. I stated I am unsure when she maybe ready but could be by end of week but DR Camejo would be a better person to ask. I did fax referral to [facility].
--- NOTE | 2016-10-07 15:29 | NUR ---
Significant Event: Patient answers orientation questions appropriately, but is confused and gives inconsistent answers. Does not know why she is in the hospital. Drowsy throughout the day with some improvement in the afternoon. Flat affect. Up with 1A, gaitbelt, walker, and heart hugger. Vital signs stable on 3L. Attempted to wean to 2L, but O2 sats 89-90%. Sternal incision and chest tube sites open to air without and signs/symptoms of infection. Pain at sights occasionally. Given [place] this A.M. and Tylenol last at 1350. Patient states pain is tolerable. ALBA pond SL. [id number] at bedside throughout the day. UA and UC done this shift. Follow up: Continue as per plan of care. Continue to encourage PO intake and activity. Monitor neuro status.
--- NOTE | 2016-10-08 04:56 | NUR ---
Significant Event: A/0X3. DROWSY AT TIMES. FLAT EFFECT. 1 ASSIST WITH WALKER TO BR. HEART HUGGER ON. NEEDS REMINDERS WHEN GETTING UP TO FOLLOW STERNAL PRECAUTIONS. AFEBRILE. VSS ON 3L. IV L) FA SL. STERNUM OPEN TO AIR. EDGES APPROXIMATED. CLOSED. HEALING WELL. NORCO GIVEN X2. TYLENOL X1. PATIENT WAS ABLE TO FIND RELIEF AND REST COMFORTABLY THROUGHOUT THE SHIFT. VOIDED 500+ MLS. NO BM THIS SHIFT. Follow up: CONTINUE WITH PLAN OF CARE.
[2016-10-08 07:16] LABS: BASOPHIL # 0.1 K/uL (0.0-0.2); BASOPHIL % 0.5 %; EOSINOPHIL # 0.6 K/uL (0.0-0.5); EOSINOPHIL % 5.5 %; HEMOGLOBIN 10.2 g/dL (10.0-15.0); IMMATURE GRANULOCYTE # 0.2 K/uL (0.0-0.3); IMMATURE GRANULOCYTE % 1.5 %; LYMPHOCYTE # 2.7 K/uL (0.8-4.0); LYMPHOCYTE % 26.1 %; MCH 29.6 pg (27.0-34.0); MCHC 31.9 gm/dL (32.0-36.5); MCV 92.8 fl (83.0-98.0); MONOCYTE # 1.2 K/uL (0.0-1.0); MONOCYTE % 11.5 %; MPV 10.6 fl (9.4-12.4); NEUTROPHIL # (ANC) 5.7 K/uL (1.8-7.8); NEUTROPHIL % 54.9 %; NRBC % 0.2 /100WBC (0-0.00); RBC 3.45 M/uL (3.50-5.50); RDW-CV 17.4 % (11.9-14.6); WBC 10.3 K/uL (4.0-11.0)
[2016-10-08 07:17] LABS: PLATELET COUNT 329 K/uL (150-450)
[2016-10-08 07:34] LABS: ALBUMIN 2.4 gm/dL (3.5-5.0); ANION GAP 13.9 (10.0-19.0); BLOOD UREA NITROGEN 25 mg/dL (6-24); CALCIUM 9.3 mg/dL (8.5-10.5); CHLORIDE 112 mMol/L (96-110); CO2 21 mMol/L (22-32); CREATININE 0.8 mg/dL (0.5-1.1); ESTIMATED GFR (MDRD EQUATION) > 60; PHOSPHORUS 3.6 mg/dL (2.5-4.9); SODIUM 142 mMol/L (135-145)
[2016-10-08 07:43] LABS: POTASSIUM 4.9 mMol/L (3.7-5.1)
--- NOTE | 2016-10-08 09:03 | NUR ---
A - NUTRITION F/U. 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 CONFUSED AT TIMES. DIET: DIABETIC W/ GLUCERNA BID. INTAKE VARIES FROM BITES TO 25 TO 75%. D - AT RISK W/ INADEQUATE ORAL INTAKE R/T DECREASED APPETITE S/P CABG AEB INTAKE RECORD. I - GOAL: 50-75% INTAKE BY DISMISSAL. M/E - 1) CONT TO ENCOURAGE ORAL INTAKE. 2) WILL F/U IN 3-5 DAYS.
--- NOTE | 2016-10-08 10:22 | NUR ---
reviewed student charting and on the floor from [id number] jeet [id number]
--- NOTE | 2016-10-08 15:46 | NUR ---
PATIENT UP TO CHAIR AND BR W/ 1 ASSIST. 3-4L NC THIS SHIFT. [facility] 1 NOCRO X2 THIS SHIFT FOR INCISION PAIN.
--- NOTE | 2016-10-08 16:18 | NUR ---
I got a call from Reyna from [facility] around noon and they will accept the pt, they just need family to find a md for them. They did give me the clinic where Dr Betancur is and his partners [phone]. I then called Jaqui and she will be up in a bit. I then went and spoke with pt and Jaqui and explained to the pt she would benefit from a skilled stay and plan is [facility] where they are and she is ok with this. Jaqui states they are good with [facility] along with her and will call and get a md. I also notified Renetta with [facility] to get transport o2 set up. Jaqui did call me and she also stated she called and spoke with [place] as well and DR Betancur will accept and have an appointment set up for Wednesday. ID screen done. WIll plan on transfer tomorrow and Jaqui states she will be able to transport. I updated nursing as well.
--- NOTE | 2016-10-09 04:56 | NUR ---
Significant Event: VSS, PT AFEBRILE. REMAINED ON 4L O2 THE ENTIRE SHIFT WITH SATS IN THE LOW-MID 90'S. PT GETS VERY SOB JUST GOING TO BEDSIDE COMMODE AND IS EXTREMELY WEAK. NEEDS FREQUENT REMINDERS TO FOLLOW STERNAL PRECAUTIONS. PRETTY DROWSY THIS SHIFT, GAVE ONLY 1 NORCO FOR PAIN. HR REAMAINS IN ESTEFANI 50'S, DID SHARAN DOWN TO THE 40'S. Follow up:
--- NOTE | 2016-10-09 11:47 | NUR ---
PATIENT TO TRANSFER TODAY TO [facility] WITH FAMILY PER [employer]IVATE AUT[employer]. TRANSPORT OXYGEN 3 L PER NC. LAST VITALS HR 51, TEMP 97.0, RR18, 93% ON 3L, BP 111/56. PATIENT UP TO CHAIR W/ 1- 2 ASSIST. PATIENT IS SLOW TO RESPOND IS HER BASELINE, BUT IS ORIENTED X3 MOST ASSESSMENTS, OCCASIONALLY DISORIENTED TO TIME. PATIENT IS DROWSY BUT AROUSES TO STIMULI. PATIENT RECEIVED NORCO X1 FOR INCISIONAL PAIN THIS AM. TOOK PILLS WHOLE WITHOUT DIFFICULTY. FAMILY IS AT BEDSIDE. PATIENT HAS POOR APPETITE, ATE BITES OF BREAKFAST. ENCOURAGED ORAL INTAKE. CONTINUE STERNAL PRECAUTIONS.
--- NOTE | 2016-10-09 14:27 | NUR ---
PATIENT TRANSFERED TO [facility] TODAY WITH FAMILY PER W/C BY TRANSPORT STAFF. TRANSFERED WITH OXYGEN TANK ON 3L NC. NURSE TO NURSE REPORT CALLED TO [facility] AT [facility]. REVIEWED LAST VITALS, ASSESSMENT, INCLUDING NEURO ASSESSMENT, SKIN ASSESSMENT, FALL RISK, LAST PAIN MED, AND LAST BM. REVIEWED STERNAL PRECAUTIONS IN REPORT, AND INCLUDED INSTRUCTION SHEET ON STERNAL PRECAUTIONS IN TRANSFER PACKET.
== END 2016-10-09 14:25 | DRG 236 ==
LOC: GCAR 12:57 → GICU 10-01 09:42 → GCAR 10-01 11:30 → GICU 10-03 11:00 → GPCU 10-05 15:51
PROVIDERS: ADMIT Thoracic Surgery (Cardiothoracic Vascular Surgery)
DX: I25.10 Atherosclerotic heart disease of native coronary artery without angina pectoris (principal); J44.1 Chronic obstructive pulmonary disease with (acute) exacerbation; E11.9 Type 2 diabetes mellitus without complications; F17.210 Nicotine dependence, cigarettes, uncomplicated; I65.29 Occlusion and stenosis of unspecified carotid artery
CPT/HCPCS: C1751; J0282; J0690; J1160; J1644; J1650; J2150; J2250; J2270; J2370; J2720; J3480; J3490; J7040; J7060; J7121; P9047

== ENCOUNTER → 2016-10-29 | Outpatient (CLI) | payer MEDICARE, OTHER ==
[~2016-10-29] MED LIST: AMIODARONE HCL200 MG PO; ASPIR 8181 MG PO; CALCIUM 500 +1 EACH PO; CALCIUM-MAGNES1 EAC4 PO; CIPRO500 MG PO; FISH OIL 1,2001 EAC1 PO; GLUCOPHAGE500 MG PO; LIPITOR80 MG PO; LOPRESSOR50 MG PO; NORVASC10 MG PO; PLAVIX75 MG PO; PRINIVIL (ZESTR20 MG PO; RANEXA ER500 MG PO; WOMEN'S DAILY1 EAC1 PO
[2016-10-29 14:22] LABS: BASOPHIL # 0.1 K/uL (0.0-0.2); BASOPHIL % 0.6 %; EOSINOPHIL # 0.4 K/uL (0.0-0.5); EOSINOPHIL % 4.7 %; HEMOGLOBIN 12.8 g/dL (10.0-15.0); IMMATURE GRANULOCYTE % 0.3 %; LYMPHOCYTE # 2.7 K/uL (0.8-4.0); LYMPHOCYTE % 30.2 %; MCHC 30.9 gm/dL (32.0-36.5); MCV 95.6 fl (83.0-98.0); MONOCYTE # 0.9 K/uL (0.0-1.0); MONOCYTE % 9.9 %; NEUTROPHIL # (ANC) 4.8 K/uL (1.8-7.8); NEUTROPHIL % 54.3 %; NRBC % 0 /100WBC (0-0.00); PLATELET COUNT 273 K/uL (150-450); RDW-CV 16.8 % (11.9-14.6); WBC 8.8 K/uL (4.0-11.0)
[2016-10-29 14:24] LABS: HEMATOCRIT 41.4 % (33.0-46.0); MCH 29.6 pg (27.0-34.0); RBC 4.33 M/uL (3.50-5.50)
[2016-10-29 14:39] LABS: ALBUMIN 3.5 gm/dL (3.5-5.0); ANION GAP 12.8 (10.0-19.0); CALCIUM 9.9 mg/dL (8.5-10.5); POTASSIUM 4.8 mMol/L (3.7-5.1); TOTAL PROTEIN 7.2 g/dL (6.0-8.4)
[2016-10-29 14:42] LABS: TOTAL BILIRUBIN 0.2 mg/dL (0.0-1.5)
== END | disposition disaster alternative care site (69) ==
LOC: LNHI 14:14
PROVIDERS: Nurse Practitioner Women's Health
DX: I25.10 Atherosclerotic heart disease of native coronary artery without angina pectoris (principal); R53.83 Other fatigue